=== PATIENT | male | born 1985 | race Caucasian/White ===

== ENCOUNTER 2016-07-15 10:09 | Emergency (ER) | payer BC, SELFPAY | END 2016-07-15 10:42 | disposition home or self-care (01) | LOC: BURERS 10:09 | DX: R51 Headache (principal); R07.89 Other chest pain; I10 Essential (primary) hypertension; Z79.899 Other long term (current) drug therapy ==

== ENCOUNTER 2016-08-14 00:33 | Emergency (ER) | payer BC ==
[2016-08-14 01:14] LABS: #Basophils 0.1 thou/uL (0.0-0.2); #Eosinphils 0.1 thou/uL (0.0-0.7); #Lymphocytes 3.3 thou/uL (1.20-3.40); #Monocytes 0.8 thou/uL (0.11-0.59); #Neutrophils 5.8 thou/uL (1.40-6.50); %Basophils 1.3 % (0.0-1.0); %Eosinophils 0.7 % (0.0-10.0); %Lymphocytes 32.8 % (21.0-51.0); %Neutrophils 57.3 % (42.0-75.0); Hemoglobin 16.7 g/dL (14.0-18.0); Mean Corpuscular HGB CONC 36.4 g/dL (32.0-36.0); Mean Corpuscular Volume 85.3 fl (80.0-94.0); Platelet Count 292 thou/uL (130-400); RBC Distribution Width 11.2 % (11.5-14.5); Red Blood Cell (RBC) Count 5.39 mill/uL (4.70-6.10); White Blood Cell (WBC) Count 10.2 thou/uL (4.8-10.8)
[2016-08-14 01:18] LABS: PTT 27.5 SEC (22.9-36.1); Prothrombin Time 13.5 SEC (12.0-14.7)
[2016-08-14 01:19] LABS: D-Dimer Test Less than 0.27 *mcg/mL (0.27-0.43)
[2016-08-14 01:23] LABS: ALT (SGPT) 47 U/L (8-55); AST (SGOT) 28 U/L (5-34); Albumin 4.4 g/dL (3.5-5.0); Alkaline Phosphatase 103 U/L (40-150); Anion Gap 15 mmol/L (10-20); BUN (Urea Nitrogen) 14 mg/dL (8.9-20.6); Bilirubin, Total 0.5 mg/dL (0.2-1.2); Calc. Creatinine Clearance 0 mL/min (70-130); Calcium 9.3 mg/dL (7.8-10.44); Carbon Dioxide 22 mmol/L (22-29); Chloride 104 mmol/L (98-107); Estimated GFR-MDRD 87; Globulin 3.4 g/dL (2.4-3.5); Glucose 100 mg/dL (70-105); Potassium 4.1 mmol/L (3.5-5.1); Protein, Total 7.8 g/dL (6.0-8.3); Sodium 137 mmol/L (136-145)
[2016-08-14 01:27] LABS: CKMB 1.2 ng/mL (0-6.6); Troponin I Less than 0.010 ng/mL (< 0.028)
--- NOTE | 2016-08-14 07:54 | RAD ---
PORTABLE CHEST 08/14/2016 An AP portable film at 0040 hours shows a normal size heart for projection and body habitus. There is no vascular congestion, edema, or pleural effusion. The lungs are clear. The trachea is midline . IMPRESSION: No acute thoracic findings. POS: HOME
== END 2016-08-14 01:40 | disposition home or self-care (01) ==
LOC: BURERS 00:33
DX: F41.0 Panic disorder [episodic paroxysmal anxiety] (principal); I10 Essential (primary) hypertension; Z79.899 Other long term (current) drug therapy
CPT/HCPCS: 71010; 80053; 82553; 84484; 85025; 85379; 85610; 85730; 93005; 94760

== ENCOUNTER 2017-01-14 18:40 | Emergency (ER) | payer BC, SELFPAY ==
[2017-01-14] MEDS ORDERED: Ibuprofen 800 MG TAB ONE (19:14)
[2017-01-14] MEDS ORDERED: traMADol HCl 50 MG TAB ONE (19:14)
--- NOTE | 2017-01-14 23:53 | RAD ---
RIGHT ANKLE THREE VIEWS: Date: 01-14-17 FINDINGS: No acute fracture was identified. There is marked swelling around the ankle, especially laterally. Th ere is a little irregularity at the tips of the malleoli which could be from old injuries but they do not appear acute. The joint surfaces of the tibiotalar joint appear intact. A calcaneal spur is pres ent. IMPRESSION: Soft tissue swelling without signs of acute fracture. POS: HOME
== END 2017-01-14 19:38 | disposition home or self-care (01) ==
LOC: BURERS 18:40
DX: S93.421A Sprain of deltoid ligament of right ankle, initial encounter (principal); I10 Essential (primary) hypertension; F32.9 Major depressive disorder, single episode, unspecified; F41.9 Anxiety disorder, unspecified; F17.210 Nicotine dependence, cigarettes, uncomplicated; Z79.899 Other long term (current) drug therapy; X50.1XXA Overexertion from prolonged static or awkward postures, initial encounter; Y93.67 Activity, basketball

== ENCOUNTER 2019-01-06 02:33 | Emergency (ER) | payer BC ==
[2019-01-06 02:59] LABS: Bilirubin Negative (Negative); Blood, Urine Trace (Negative); Clarity Clear (Clear); Glucose, Urine (Dipstick) Negative (Negative); Leukocyte Negative (Negative); Nitrite Negative (Negative); Protein, Urine (Dipstick) Negative (Neg-Trace); Urobilinogen 0.2 mg/dL (Less than 2)
[2019-01-06] MEDS ORDERED: Ketorolac Tromethamine 30 MG/ML VIAL ONE (03:03)
[2019-01-06 03:05] LABS: Bacteria/HPF Rare-Few HPF (None Seen); RBC/HPF 0-3 HPF (0-3); Squamous Epithelial 0-3 HPF (0-3); WBC/HPF None Seen HPF (0-3)
[2019-01-06 03:11] LABS: #Basophils 0.1 thou/uL (0.0-0.2); #Eosinphils 0.1 thou/uL (0.0-0.7); #Lymphocytes 4.3 thou/uL (1.20-3.40); #Monocytes 0.9 thou/uL (0.11-0.59); #Neutrophils 5.7 thou/uL (1.40-6.50); %Basophils 1.2 % (0.0-1.0); %Eosinophils 1.2 % (0.0-10.0); %Lymphocytes 38.6 % (21.0-51.0); %Monocytes 7.9 % (0.0-10.0); %Neutrophils 51.2 % (42.0-75.0); Hemoglobin 16.2 g/dL (14.0-18.0); Mean Corpuscular HGB CONC 34.1 g/dL (32.0-36.0); Mean Corpuscular Hemoglobin 29.4 pg (27.0-31.0); Mean Corpuscular Volume 86.1 fL (78.0-98.0); Mean Platelet Volume 8.5 fL (7.4-10.4); Platelet Count 284 thou/uL (130-400); RBC Distribution Width 10.8 % (11.5-14.5); Red Blood Cell (RBC) Count 5.52 mill/uL (4.70-6.10); White Blood Cell (WBC) Count 11.1 thou/uL (4.8-10.8)
[2019-01-06 03:43] LABS: ALT (SGPT) 91 U/L (8-55); AST (SGOT) 34 U/L (5-34); Albumin 4.2 g/dL (3.5-5.0); Alkaline Phosphatase 94 U/L (40-110); Anion Gap 15 mmol/L (10-20); BUN (Urea Nitrogen) 10 mg/dL (8.9-20.6); Bilirubin, Total 0.7 mg/dL (0.2-1.2); Calc. Creatinine Clearance 0 mL/min (70-130); Calcium 9.8 mg/dL (7.8-10.44); Carbon Dioxide 23 mmol/L (22-29); Chloride 105 mmol/L (98-107); Estimated GFR-MDRD Greater than 90; Globulin 2.9 g/dL (2.4-3.5); Glucose 97 mg/dL (70-105); Lipase 26 U/L (8-78); Potassium 3.8 mmol/L (3.5-5.1); Protein, Total 7.1 g/dL (6.0-8.3); Sodium 139 mmol/L (136-145)
--- NOTE | 2019-01-06 08:20 | CT ---
PRELIMINARY REPORT/[facility]/EMERGENCY AFTER HOURS PROCEDURE: PROCEDURE INFORMATION: Exam: CT Abdomen And Pelvis Without Contrast Exam date and time: 01/06/2019 3:10 AM Age: 33 years old Clinical history: Abdominal pain; Generalized; Patient HX: Bilateral flank pain and epigastric abd pa in, cloudy urine, no HX of kidney stones TECHNIQUE: Imaging protocol: Computed tomography of the abdomen and pelvis without contrast. Radiation optimizat ion: All CT scans at this facility use at least one of these dose optimization techniques: automated exposure control; mA and/or kV adjustment per patient size (includes targeted exams where dose is matched to clinical indication); or iterative reconstruction. COMPARISON: No relevant prior studies available. FINDINGS: Lungs: The visualized portions of the lung bases are normal. Liver: There are no focal liver lesions identified. Gallbladder and bile ducts: There is trace gallbladder wall edema, nonspecific. No ductal dilatation. Pancreas: Normal. No ductal dilation. Spleen: The spleen is normal. Adrenals: The adrenal glands are normal. Kidneys and ureters: There is punctate LEFT renal parenchymal calcification.The right kidney is vasiliy l. There is no evidence of hydronephrosis. Stomach and bowel: The stomach is normal. The duodenum is unremarkable. There is no evidence of intes tinal perforation or obstruction. Appendix: A normal appendix is identified. Intraperitoneal space: Unremarkable. No free air. No significant fluid collection. Vasculature: Unremarkable. No abdominal aortic aneurysm. Lymph nodes: Unremarkable. No enlarged lymph nodes. Bladder: The bladder is normal. Reproductive: Unremarkable as visualized. Bones/joints: Unremarkable. No acute fracture. Soft tissues: Unremarkable. IMPRESSION: Nonspecific gallbladder wall edema. If there is clinical suspicion for acute cholecystitis a RIGHT up per quadrant ultrasound may be performed for further evaluation. Thank you for allowing us to participate in the care of your patient. Dictated and Authenticated by: Marquis Zuniga MD 01/06/2019 3:30 AM Central Time ([place] & [place]) FINAL REPORT CT ABDOMEN AND PELVIS WITHOUT CONTRAST: Date: 01/06/19 The lung bases are clear. The liver, spleen, pancreas, adrenal glands, and abdominal aorta appear nor mal. There is a nonobstructing calculus in the upper pole of the left kidney. No ureteral calculi see n. Regarding the gallbladder, it is mildly generous in size and there is a question raised on thickening of its wall. The findings is equivocal at best. If symptoms point this direction, then an ultrasound should be done. CT of pelvis showed no pelvic masses, fluid collections, or inflammatory changes. The patient has katerin e disc space narrowing with osteophyte formation at L1-L2. There is very slight disc space narrowing at L5-S1 as well. IMPRESSION: 1. Equivocal findings regarding the gallbladder. If symptoms point that direction, then an ultrasoun d might be done to rule in or rule out disease. 2. Tiny nonobstructing calculus in the left kidney. REPORT IN AGREEMENT WITH PRELIMINARY REPORT BY CHELSEA. POS: HOME
== END 2019-01-06 04:00 | disposition short-term general hospital (02) ==
LOC: BURERS 02:33
DX: R10.10 Upper abdominal pain, unspecified (principal); R10.816 Epigastric abdominal tenderness; I10 Essential (primary) hypertension; F41.9 Anxiety disorder, unspecified; F32.9 Major depressive disorder, single episode, unspecified; F17.210 Nicotine dependence, cigarettes, uncomplicated; Z79.899 Other long term (current) drug therapy
CPT/HCPCS: 36415; 74176; 80053; 81003; 81015; 83690; 85025; 96374; J1885

== ENCOUNTER 2019-02-27 11:41 | Outpatient (CLI) | payer BC ==
--- NOTE | 2019-02-27 21:17 | RAD ---
CHEST TWO VIEWS: 02/27/19 Comparison is made with a 08/14/16 study. The heart size is stable. There is no vascular congestion, edema, or pleural effusion. The level of inspiration is not deep which crowds some of the basilar lung markings. Allowing for th is, I cannot diagnose any definite infiltrate to confirm pneumonia at the moment. Perhaps some of the markings are little more prominent in the right base, but with such a shallow breath, I would be weston d pressed to confirm an acute infiltrate. IMPRESSION: No definite acute findings. POS: HOME
== END 2019-02-27 11:42 | disposition home or self-care (01) ==
LOC: BURRAD 11:41
PROVIDERS: ATTEND Physician Assistant
DX: J18.9 Pneumonia, unspecified organism (principal)
CPT/HCPCS: 71046

== ENCOUNTER 2019-03-01 10:50 | Outpatient (CLI) | payer BC ==
--- NOTE | 2019-03-01 16:26 | RAD ---
CHEST TWO VIEWS: 03/01/19 Comparison is made with the 02/27 study. The lung bases are now clearer. The streaking in the right ba se seen previously has resolved. No effusions are present. The cardiac size is unchanged. IMPRESSION: Infiltrates resolved. POS: HOME
== END 2019-03-01 10:51 | disposition home or self-care (01) ==
LOC: BURRAD 10:50
PROVIDERS: ATTEND Physician Assistant
DX: J18.9 Pneumonia, unspecified organism (principal)
CPT/HCPCS: 71046

== ENCOUNTER 2021-10-02 21:37 | Emergency (ER) | payer BC ==
[2021-10-02] MEDS ORDERED: Iopamidol 370 76% 100 ML VIAL FS ONE (21:38)
[2021-10-02] MEDS ORDERED: Iopamidol 370 76% 50 ML VIAL FS ONE (21:38)
[2021-10-02] MEDS ORDERED: Morphine 2 MG/ML VIAL ONE (22:11)
[2021-10-02] MEDS ORDERED: Morphine 4 MG/ML VIAL ONE (22:11)
[2021-10-02] MEDS ORDERED: Pantoprazole 40 MG VIAL ONE (22:11)
[2021-10-02] MEDS ORDERED: Ondansetron PF 4 MG/2 ML Vial ONE (22:11)
[2021-10-02 22:32] LABS: ALT (SGPT) 53 U/L (8-55); AST (SGOT) 29 U/L (5-34); Albumin 4.4 g/dL (3.5-5.0); Alkaline Phosphatase 118 U/L (40-110); Anion Gap 16 mmol/L (10-20); BUN (Urea Nitrogen) 10 mg/dL (8.9-20.6); Bilirubin, Total 1.3 mg/dL (0.2-1.2); Calc. Creatinine Clearance 0 mL/min (70-130); Carbon Dioxide 22 mmol/L (22-29); Chloride 105 mmol/L (98-107); Estimated GFR 118; Globulin 3.1 g/dL (2.4-3.5); Glucose 120 mg/dL (70-105); Lipase 30 U/L (8-78); Potassium 3.3 mmol/L (3.5-5.1); Protein, Total 7.5 g/dL (6.0-8.3); Sodium 140 mmol/L (136-145)
[2021-10-02 22:35] LABS: Hemoglobin 17.5 g/dL (14.0-18.0); Mean Corpuscular HGB CONC 35.1 g/dL (32.0-36.0); Mean Corpuscular Hemoglobin 31.2 pg (27.0-31.0); Mean Platelet Volume 6.8 fL (7.4-10.4); Platelet Count 260 thou/uL (130-400); RBC Distribution Width 12.2 % (11.5-14.5); White Blood Cell (WBC) Count 9.1 thou/uL (4.8-10.8)
[2021-10-02] MEDS ORDERED: Sucralfate 1 GM TAB PO SCH (23:45)
[2021-10-03 00:04] LABS: #Basophils 0.1 thou/uL (0.0-0.2); #Eosinphils 0.1 thou/uL (0.0-0.7); #Monocytes 0.7 thou/uL (0.11-0.59); #Neutrophils 4.3 thou/uL (1.40-6.50); %Basophils 1.3 % (0.0-1.0); %Eosinophils 1.2 % (0.0-10.0); %Monocytes 7.7 % (0.0-10.0); %Neutrophils 46.9 % (42.0-75.0)
== END 2021-10-03 00:25 | disposition home or self-care (01) ==
LOC: BURERS 21:37
DX: R10.13 Epigastric pain (principal); I10 Essential (primary) hypertension; F17.210 Nicotine dependence, cigarettes, uncomplicated; Z79.899 Other long term (current) drug therapy
CPT/HCPCS: 36415; 74177; 80053; 83690; 85025; 96361; 96374; 96375; C9113; J2270; J2405; Q9967

== ENCOUNTER 2022-03-19 11:45 | Emergency (ER) | payer BC ==
[2022-03-19 12:33] LABS: #Basophils 0.1 thou/uL (0.0-0.2); #Eosinphils 0.1 thou/uL (0.0-0.7); #Lymphocytes 3.8 thou/uL (1.20-3.40); #Monocytes 0.7 thou/uL (0.11-0.59); #Neutrophils 3.2 thou/uL (1.40-6.50); %Basophils 1.8 % (0.0-1.0); %Eosinophils 1.4 % (0.0-10.0); %Lymphocytes 47.4 % (21.0-51.0); %Monocytes 8.9 % (0.0-10.0); %Neutrophils 40.6 % (42.0-75.0); Hemoglobin 19.3 g/dL (14.0-18.0); Mean Corpuscular HGB CONC 36.6 g/dL (32.0-36.0); Mean Corpuscular Hemoglobin 33.4 pg (27.0-31.0); Mean Corpuscular Volume 91.3 fl (78.0-98.0); Mean Platelet Volume 6.7 fL (7.4-10.4); Platelet Count 317 10x3/uL (130-400); RBC Distribution Width 10.2 % (11.5-14.5); Red Blood Cell (RBC) Count 5.78 mill/uL (4.70-6.10)
[2022-03-19 12:45] LABS: ALT (SGPT) 62 U/L (8-55); AST (SGOT) 53 U/L (5-34); Albumin 4.8 g/dL (3.5-5.0); Alkaline Phosphatase 104 U/L (40-110); Anion Gap 20 mmol/L (10-20); BUN (Urea Nitrogen) 8 mg/dL (8.9-20.6); Bilirubin, Total 1.8 mg/dL (0.2-1.2); Calc. Creatinine Clearance 0 mL/min (70-130); Calcium 9.8 mg/dL (7.8-10.44); Carbon Dioxide 17 mmol/L (22-29); Chloride 104 mmol/L (98-107); Estimated GFR 116; Globulin 3.2 g/dL (2.4-3.5); Glucose 101 mg/dL (70-105); Lipase 40 U/L (8-78); Magnesium 1.7 mg/dL (1.6-2.6); Potassium 3.4 mmol/L (3.5-5.1); Sodium 138 mmol/L (136-145)
[2022-03-19] MEDS ORDERED: Lorazepam 2 MG/ML VIAL ONE (13:02)
== END 2022-03-19 13:25 | disposition home or self-care (01) ==
LOC: BURERS 11:45
DX: F43.22 Adjustment disorder with anxiety (principal); E86.0 Dehydration; I10 Essential (primary) hypertension; Z79.899 Other long term (current) drug therapy
CPT/HCPCS: 71045; 80053; 83690; 83735; 84443; 84484; 85025; 93005; 96361; 96374; J2060